=== PATIENT | female | born 1965 | race Caucasian/White ===

== ENCOUNTER 2022-08-18 09:01 | Emergency (ER) | payer OTHER, SELFPAY ==
[2022-08-18 09:12] VITALS: BP 173/94; PULSE 91; RESP 18; TEMP 36.1; O2SAT 95; BMI 31.3
--- NOTE | 2022-08-18 10:01 | ED_ITS ---
HPI - Skin/Abscess/Foreign Bdy General Date Seen: 08/18/22 Chief complaint: Skin/Abscess/Foreign Body Stated complaint: Tick on L shoulder with rash Time Seen by Provider: 08/18/22 09:16 Source: patient Mode of arrival: ambulatory Limitations: no limitations History of Present Illness HPI narrative: Patient is a 57-year-old female who noticed a deer tick in her left supraclavicular region today. She comes in for an assessment of this. She tells me she has been treated for Lyme disease before, a couple years ago, her daughter almost from this. She did not remove the taking the tick is still there, she thinks she got it from 2 days ago and she mowed the lawn, she has no allergies to any medications, has been on doxycycline before. She is due to go to [place] early this week. Denies any fevers chills any spreading rash, there is no history of aches or pains, or any other characteristic findings such as headaches, neck discomfort of Lyme disease. Related Data Previous Rx's Medication Instructions Recorded doxycycline monohydrate 100 mg 100 mg PO BID #20 caps 08/18/22 capsule Allergies Allergy/AdvReac Type Severity Reaction Status Date / Time No Known Drug Allergies Allergy Verified 08/18/22 09:12 Review of Systems Status of ROS: Reports: 10 or more systems reviewed and unremarkable except as noted in History and below [facility] Social History Smoking Status: Never smoker Do you use any of these nicotine containing products: None Second hand tobacco smoke exposure: No How often do you have a drink containing alcohol: monthly or less How many standard drinks containing alcohol do you have on a typical day: 1 or 2 How often do you have six or more drinks on one occasion: Never AUDIT-C Alcohol total score: 1 Non-prescribed substance use: denies use service: No Exam Narrative: Exam Narrative: On examination there is imbedded engorged left-sided supraclavicular tick that appears to be a deer tick, small area redness characteristic of a tick bite is around it, but no characteristic rash suggestive of either typical or atypical erythema migrans. Areas clean with alcohol, using standard tick removal technique, the head is grasped with the pickups, and removed, I appeared to remove the entire tick intact, maybe a little bit of head was left. But the body was not squeeze. Bacitracin was applied Const: Vital Signs, click to edit/add: Vital Signs - 24 hr 08/18/22 09:12 Temperature 96.9 F L Pulse Rate [Pulse Oximeter] 91 Respiratory Rate 18 Blood Pressure [Ri ght Forearm] 173/94 H Pulse Oximetry 95 Oxygen Delivery Me thod Room Air Documenting provider has reviewed patient's vital signs: yes Course Course Hospital Course: Given the take is been on for less than 72 hours she should be given prophylaxis with doxycycline, 200 mg x 1 is given, she is advocating for a prescription for doxycycline for 10 days in case she develops the rash while she was in [place], given the situation I am not against this, but I would wait on taking the doxycycline, as there is an 85-90% chance of the prophylaxis works very well for this. We went over the risks benefits and side effects of taking the doxycycline. And the obvious reason why she should take the other prescription for Lyme disease. She should also follow-up for getting her blood pressure checked as it was elevated here. This may be re of related to being in the emergency department. Vital Signs Vital signs: Initial Vital Signs Temperature 96.9 F L 08/18/22 09:12 Temperature Source Temporal Artery Scan 08/18/22 09:12 Pulse Rate 91 08/18/22 09:12 Pulse Rhythm Regular 08/18/22 09:12 Respiratory Rate 18 08/18/22 09:12 Blood Pressure 173/94 H 08/18/22 09:12 Blood Pressure Mean 120 H 08/18/22 09:12 Blood Pressure Position Supine 08/18/22 09:12 Pulse Oximetry 95 08/18/22 09:12 Oxygen Delivery Method Room Air 08/18/22 09:12 Vital Signs Temperature 96.9 F L 08/18/22 09:12 Pulse Rate 91 08/18/22 09:12 Respiratory Rate 18 08/18/22 09:12 Blood Pressure 173/94 H 08/18/22 09:12 Pulse Oximetry 95 08/18/22 09:12 Oxygen Delivery Method Room Air 08/18/22 09:12 Temperature 96.9 F L 08/18/22 09:12 Pulse Rate 91 08/18/22 09:12 Respiratory Rate 18 08/18/22 09:12 Blood Pressure 173/94 H 08/18/22 09:12 Pulse Oximetry 95 08/18/22 09:12 Oxygen Delivery Method Room Air 08/18/22 09:12 Discharge Plan Discharge Clinical Impression: Tick bite with subsequent removal of tick, Elevated blood pressure reading, History of chronic hypertension Patient Disposition: Home, Self-Care Condition: Improved Instructions: Lyme Disease (ED), Tick Bite (ED) Additional Instructions: Home rest use of Tylenol for the headache that will develop with use of doxycycline. I have given you prescription that she may fill intake with you to your up if you needed. For 100 mg of the doxy twice daily for 10 days. Any other symptoms you need to follow-up with the doctor. Please only take the medication if you developed the bull's-eye lesion, or other characteristic findings of Lyme disease. Bacitracin should be applied daily to the area of the tick bite, the mouth parts if they are still in there, which I thought I got most of the mouth parts out. They will follow-up themselves are be expelled by the skin. He should follow-up in get her blood pressure checked, the elevated blood pressure may be a reflection of being in the emergency department but I would be more comfortable with use being seen by primary care, and getting this checked. This should be done within the next few weeks. Activity Level: No Restrictions Prescriptions: New doxycycline monohydrate 100 mg capsule 100 mg PO BID Qty: 20 0RF Follow Up/Referrals: Erma Mock MD [Primary Care Provider] - Stand Alone Forms: [employer] Info Instructions
[2022-08-18] MEDS: DOXYCYCLINE HYCLATE 100 MG CAPSULE 200 MG PO (10:08)
== END 2022-08-18 10:17 | disposition home or self-care (01) ==
LOC: ED 10:06
PROVIDERS: Emergency Provider Family Medicine; PCP Family Medicine
DX: S10.86XA Insect bite of other specified part of neck, initial encounter (principal); W57.XXXA Bitten or stung by nonvenomous insect and other nonvenomous arthropods, initial encounter; Y93.H2 Activity, gardening and landscaping
CPT/HCPCS: 99283; 99284; A9270

== ENCOUNTER 2022-09-27 09:05 | Outpatient (CLI) | payer OTHER, SELFPAY | END 2022-09-27 09:06 | disposition home or self-care (01) | PROVIDERS: PCP Family Medicine; Visit Provider Family Medicine | DX: R53.83 Other fatigue (principal); E78.5 Hyperlipidemia, unspecified; E55.9 Vitamin D deficiency, unspecified; I10 Essential (primary) hypertension; E66.9 Obesity, unspecified | CPT/HCPCS: 80053; 80061; 82306; 82607; 84443 ==

== ENCOUNTER 2023-02-07 09:00 | Outpatient (CLI) | payer OTHER, SELFPAY ==
--- NOTE | 2023-02-07 09:43 | W.ANESCHARGE ---
Anesthesia Charges Start Date/Time Anesthesia Start Date: 02/07/23 Anesthesia Start Time: 09:25 Stop Date/Time Anesthesia Stop Date: 02/07/23 Anesthesia Stop Time: 09:50
--- NOTE | 2023-02-07 09:53 | W.ANESCHARGE ---
Anesthesia Charges Start Date/Time Anesthesia Start Date: 02/07/23 Anesthesia Start Time: 09:25 Stop Date/Time Anesthesia Stop Date: 02/07/23 Anesthesia Stop Time: 09:50
== END 2023-02-07 09:01 | disposition home or self-care (01) ==
LOC: OP CLINIC 09:01
PROVIDERS: PCP Family Medicine; Visit Provider Internal Medicine
DX: Z12.11 Encounter for screening for malignant neoplasm of colon (principal); K57.30 Diverticulosis of large intestine without perforation or abscess without bleeding; Z86.010 Personal history of colon polyps
CPT/HCPCS: 00811; 00812; 45378; J2704

== ENCOUNTER 2023-02-14 15:08 | Outpatient (CLI) | payer OTHER, SELFPAY ==
--- NOTE | 2023-02-14 15:00 | CRLHL7_ITS ---
For Patients: As a result of the Century Cures Act, medical imaging exams and procedure reports are released immediately into your electronic medical record. You may view this report before your referring provider. If you have questions, please contact your health care provider. BILATERAL SCREENING MAMMOGRAM WITH COMPUTER-AIDED DETECTION TECHNIQUE: CC and MLO views were obtained. These mammographic images have been obtained using full-field digital technique. These mammographic images were interpreted with the benefit of computer-aided detection. COMPARISON FILM: 07/31/21, 04/21/18, 09/19/10. FINDINGS: There are scattered areas of fibroglandular density. IMPRESSION: There is no radiographic evidence for malignancy. ASSESSMENT: BI-RADS Category 1: Negative RECOMMENDATION: Routine screening mammogram in 1 year. A lay language report of this examination will be provided to the patient. ALEX MORILLO M.D. Diagnostic Radiologist [email or web address] Transcribed: 02/17/2023, 5:[address]/Dictated by: Alex Morillo MD @ 02/17/2023 1:03:00 PM (Electronically Signed)
== END 2023-02-14 15:09 | disposition home or self-care (01) ==
LOC: MAMMO 15:09
PROVIDERS: PCP Family Medicine; Visit Provider Family Medicine
DX: Z12.31 Encounter for screening mammogram for malignant neoplasm of breast (principal)
CPT/HCPCS: 77067

== ENCOUNTER 2024-02-11 15:27 | Outpatient (CLI) | payer OTHER, SELFPAY ==
--- OUTSIDE RECORDS SUMMARY | 2024-02-11 15:32 | XMS_ITS | Clinical Summary ---
Author Organization [facility] Address [address] [place] [address] Care Team Providers Care Tire Tester Name Role Phone Unavailable Primary Care Provider Unavailabl e Source Comments Patient records contain information from all sites at [facility]. For routine questions regarding patient records, call [phone] during business hours, M-F 8:00 AM - 5:00 PM Central Time. Record requests for emergency care only can be directed to [phone] at any time.[facility] Allergies No known active allergies Medications losartan (COZAAR) 50 mg tablet Take 50 mg by mouth daily. Active multivitamin (MULTIPLE VITAMINS) tablet Take 1 tablet by mouth daily. 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 Pulse 96 08/26/2017 3:49 PM CDT Temperature - - Respiratory Rate - - Oxygen Saturation - - Inhaled Oxygen Concentration - - Weight 99.9 kg (220 lb 3.8 oz) 08/26/2017 3:49 PM CDT Height 168.5 cm (5' 6.34) 08/26/2017 3 :49 PM CDT Body Mass Index 35.19 08/26/2017 3:49 PM CDT Plan of Treatment Health Maintenance Due Date Last Done Comments CT Colonography 1965 Cologuard 1965 Colonoscopy 1965 Colorectal Cancer Screening 1965 Creatinine Level (Kidney Function Test) 1965 FIT 1965 Fasting Glucose for Diabetes Screening 1965 HIV Screening 1965 Hepatitis C Screening 1965 Lipid (Cholesterol) Screening 1965 Mammogram 1965 Potassium Level 1965 Sodium Level 1965 Hepatitis B Vaccines (1 of 3 - 19+ 3-dose series) 1984 Zoster Vaccines (1 of 2) 06/14/2015 Cervical/Vaginal Cancer Screening 03/24/2021 03/24/2018 Depression Screening (Annual PHQ-2) 04/07/2023 COVID-19 Vaccine (1 - 2023-2 5 season) 2023 Influenza Vaccine (#1) 2024 DTaP,Tdap,and Td Vaccines (3 - Td or Tdap) 05/25/2031 05/25/2021, 09/04/2010 IPV Vaccines Aged Out No longer eligi ble based on patient's age to complete this topic Pneumococcal vaccine (0-64 years) Aged Out No longer eligible b ased on patient's age to complete this topic Insurance [facility]
--- OUTSIDE RECORDS SUMMARY | 2024-02-11 15:32 | XMS_ITS | Clinical Summary ---
Author Organization [facility] Address [address] [place] [address] Care Team Providers Care Railway Track Plant Operator Name Role Phone Unavailable Primary Care Provider Unavailabl e Allergies No known active allergies Medications Multiple Vitamin (MULTI-VITAMIN PO) Active lisinopril (PRINIVIL/ZESTRI L) 10 MG tablet Take 10 mg by mouth daily Active Active Problems Problem Noted Date Diagnosed Date Seborrheic keratosis 03/14/2017 Inflamed seborrheic keratosis 03/14/2017 Rey angioma 03/14/2017 Multiple nevi 03/14/2017 History of basal cell carcinoma 03/14/2017 Skin exam, screening for cancer 04/16/2013 Family History Medical History Relation Comments Skin Cancer Father Skin Cancer Mother Relation Status Comments Father Mother Social History Tobacco Use Types Packs/Day Years Used Date Smoking Tobacco: Never Smokeless Tobacco: Never Alcohol Use Standard Drinks/Week Comments Not Asked 0 (1 standard drink = 0.6 oz pur e alcohol) Comments Unknown Sex and Gender Information Value Date Recorded Sex Assigned at Not on file 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
--- OUTSIDE RECORDS SUMMARY | 2024-02-11 15:32 | XMS_ITS | Referral Summary ---
Author Organization [facility] Address [address] [place] [address] Care Team Providers Care Doll Eye Setter Name Role Phone Unavailable Primary Care Provider Unavailabl e Source Comments Patient records contain information from all sites at [facility]. For routine questions regarding patient records, call [phone] during business hours, M-F 8:00 AM - 5:00 PM Central Time. 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
--- OUTSIDE RECORDS SUMMARY | 2024-02-11 15:32 | XMS_ITS ---
Author Organization [facility] Address [address] [place] [address] Care Team Providers Care Accreditation Manager Name Role Phone Unavailable Unavailable Unavailable Surgery Details Not on file Complications Check Surgery Details section. Procedure Estimated Blood Loss Check Surgery Details section. Procedure Findings Check Surgery Details section. Procedure Specimens Taken Check Surgery Details section.
--- OUTSIDE RECORDS SUMMARY | 2024-02-11 15:32 | XMS_ITS | Clinical Summary ---
Author Organization [facility] Address [place], [place] [address] Care Team Providers Care Fire Boat Engineer Name Role Phone Pcp, No Primary Care Provider Unavailabl e Allergies No known active allergies Medications Medication Sig Dispensed Refills Start Date End Date Status albuterol HFA (PROAIR HFA) 90 mcg/actuation inhalerIndications:Bro nchitis with bronchospasm Inhale 2 Puffs by mouth every 4 hours if needed. 1 Inhaler 1 04/10/2017 Active losartan (COZAAR) 50 mg tabletIndications:HTN (hypertension) Take 1 tablet by mouth once daily. 30 tablet 5 05/07/2017 Active Active Problems Problem Noted Date Diagnosed Date HTN (hypertension) 05/07/2017 Immunizations Name Administration Dates Next Due Hepatitis A (Adult) 06/23/2014 Tdap 09/04/2010 Social History Tobacco Use Types Packs/Day Years Used Date Smoking Tobacco: Never Smokeless Tobacco: Never Tobacco Cessation:Counseling Given: Yes Alcohol Use Standard Drinks/Week Comments Yes 0 (1 standard drink = 0.6 oz pur e alcohol) mild PHQ-2 Answer Date Recorded PHQ-2 Score 0 06/07/2018 Social Connections Answer Date Recorded Frequency of Communication with Friends and Fami ly Not on file 04/07/2021 Financial Resource Strain Answer Date R ecorded Difficulty of Paying Living Expenses Not on file 04/07/2021 Difficulty of Paying Living Expenses Not on file 04/07/2021 Sex and Gender Information Value Date Recorded Sex Assigned at Not on file Gender Identity Not on file Sexual Orientation Not on file Obstetrics History Last Filed Vital Signs Vital Sign Reading Time Taken Comments Blood Pressure 140/96 02/08/2021 1:28 PM CDT Pulse 99 02/08/2021 1:28 PM CDT Temperature 36.7 ??C (98.1 ??F) 02/08/2021 1:28 PM CD T Respiratory Rate - - Oxygen Saturation 95% 02/08/2021 1:28 PM CDT Inhaled Oxygen Concentration - - Weight 96.1 kg (211 lb 12.8 oz) 02/08/2021 1:34 PM CDT Height 169.5 cm (5' 6.73) 02/08/2021 1:34 PM CD T Body Mass Index 33.44 02/08/2021 1:34 PM CDT Plan of Treatment Health Maintenance Due Date Last Done Comments HIV for age 15-65 1980 Hepatitis C screening for age 18-79 06/14/1983 Colonoscopy through age 75 2010 Lipids for age 45-75 2010 Zoster (shingles) series for age 50+ (1 of 2) 06/14/2015 Depression screening for age 12+ 12/10/2018 12/10/2017 Mammogram for age 45-75 04/21/2019 04/21/2018 Tetanus booster 09/04/2020 09/04/2010 Pap test for age 21-65 03/24/2021 8, 03/24/2018, 09/04/2010 BMI (ht and wt on same day) for age 18+ 02/08/2022 02/08/2021, 12/10/2017, 04/09/2017, Additional history exists COVID-19 vaccine series (2023- season) 2023 Influenza for age 50-64 12/07/2023 Tdap Completed 09/04/2010 Pneumococcal series for age 6-64 Aged Out No longer eligible based on patient's age to complete this topic Procedures Procedure Name Priority Date/Time Associated Diagnosis Comments SCAN-MAMMOGRAPHY REPORT 04/21/2018 12:00 AM LEAN SPECIALIST DIGITAL COLOR PRESS OPERATOR THIN PREP PAP SCREEN IMAGED Routine 03/24/2018 8:00 AM LEAN SPECIALIST from Last 3 Months or Most Recently Relevant to Health Maintenance Results * SCAN-MAMMOGRAPHY REPORT (04/21/2018 12:00 AM LEAN SPECIALIST) Anatomical Region Laterality Modality Other Scanner OTHER * DIGITAL COLOR PRESS OPERATOR THIN PREP PAP SCREEN IMAGED (03/24/2018 8:00 AM LEAN SPECIALIST) Case Report Gynecologic Cytology Report ? Case: [id number] ? Authorizing Provider: ??Erma Mock MD ??Collected: ? 03/24/2018 0800 ? First Screen: ?Shaq, Gary ?Received: ?03/25/2018 1116 ? Rescreen: ?Norma Senior ? Specimen: ?DIGITAL COLOR PRESS OPERATOR ThinPrep Vial Screening, Cervical/Vaginal ? 04/10/2018 2:35 PM [facility] INTERPRETATION/ RESULT NEGATIVE FOR INTRAEPITHELIAL LESION OR MALIGNANCY (NIL) (none) 04/10/2018 2:35 PM [facility] IMEN ADEQUACY Satisfactory for evaluation Endocervical component present Scant cellularity 04/10/2018 2:35 PM [facility] HPV REQUEST HPV and PAP 04/10/2018 2:35 PM [facility] Automated Review Successful 04/10/2018 2:35 PM [facility] Comment:Specimen processed s uccessfully by automated layboy operator device, ThinPrep Imaging System, [employer] ANCILLARY TESTING DIGITAL COLOR PRESS OPERATOR HPV Ordered, Please see separate report 04/10/2018 2:35 PM LEAN SPECIALIST [facility]- ENTRAL LABORATORY Note The pap test is a screening technique, not a diagnostic procedure. ??It is used primarily to screen for squamous cancers and precursor lesions. ??Published studies have shown that it is subject to both false negative and false positive results. ??The pap test should not be used as the sole means to diagnose or exclude pre-malignant and malignant lesions. Cytology is screened and interpreted at [facility] - [address], [place] [address] [facility] - [address]; [place] [address] and [facility] - [address]; [place] [address] and [facility] [address]; [place] [address] 04/10/2018 2:35 PM LEAN SPECIALIST [facility]- ENTRAL LABORATORY Other (Cervical/Vagina l) 03/24/2018 8:00 AM LEAN SPECIALIST 03/25/2018 11:16 AM LEAN SPECIALIST Erma Mock MD PATHOLOGY/[facility] [address] [place] [address], [place] from Last 3 Months or Most Recently Relevant to Health Maintenance Care Teams Fire Boat Engineer Relationship Specialty Start Date End Date Pcp, No . PCP - General 10/06/23
--- OUTSIDE RECORDS SUMMARY | 2024-02-11 15:32 | XMS_ITS | Referral Summary ---
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
== END 2024-02-11 15:28 | disposition home or self-care (01) ==
PROVIDERS: PCP Family Medicine; Visit Provider Family Medicine
DX: E53.8 Deficiency of other specified B group vitamins (principal); R53.83 Other fatigue; E78.5 Hyperlipidemia, unspecified; E55.9 Vitamin D deficiency, unspecified; I10 Essential (primary) hypertension; E66.9 Obesity, unspecified
CPT/HCPCS: 80053; 80061; 82306; 82607

== ENCOUNTER 2024-06-04 10:26 | Outpatient (CLI) | payer OTHER, SELFPAY | END 2024-06-04 10:27 | disposition home or self-care (01) | PROVIDERS: PCP Family Medicine; Visit Provider Family Medicine | DX: Z12.31 Encounter for screening mammogram for malignant neoplasm of breast (principal) | CPT/HCPCS: 77063; 77067 ==

== ENCOUNTER 2025-01-27 14:19 | Emergency (ER) | payer OTHER, SELFPAY ==
--- OUTSIDE RECORDS SUMMARY | 2025-01-27 14:21 | XMS_ITS | Clinical Summary ---
Author Organization [facility] Address [address] [place] [address] Care Team Providers Care Identity Management Consultant Name Role Phone Unavailable Primary Care Provider Unavailabl e Source Comments Patient records contain information from all sites at [facility]. For routine questions regarding patient records, call [phone] during business hours, M-F 8:00 AM - 5:00 PM Central Time. Record requests for emergency care only can be directed to [phone] at any time.[facility] Allergies No known active allergies Medications losartan (COZAAR) 50 mg tablet Take 50 mg by mouth daily. Active multivitamin (MULTIPLE VITAMINS) tablet Take 1 tablet by mouth daily. 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 Gender Identity Female 08/13/2017 9:01 AM CDT Sexual Orientation Straight 08/13/2017 9: 01 AM CDT Last Filed Vital Signs Vital Sign Reading Time Taken Comments Blood Pressure 158/96 07/15/2024 1:09 PM CDT Pulse 84 07/15/2024 1:09 PM CDT Temperature - - Respiratory Rate - - Oxygen Saturation - - Inhaled Oxygen Concentration - - Weight 99.9 kg (220 lb 3.8 oz) 08/26/2017 3:49 P M CDT Height 168.5 cm (5' 6.34) 08/26/2017 3:49 PM CD T Body Mass Index 35.19 08/26/2017 3:49 PM [...] of 3 - 19+ 3-dose series) 1984 Pneumococcal vaccine (50+ years) (1 of 1 - PCV) 06/14/2015 Zoster Vaccines (1 of 2) 06/14/2015 Cervical/Vaginal Cancer Screening 03/24/2021 03/24/2018 Depression Screening (Annual PHQ-2) 04/07/2024 COVID-19 Vaccine (1 - 2024-2 6 season) 2024 Influenza Vaccine (#1) 2024 DTaP,Tdap,and Td Vaccines (3 - Td or Tdap) 05/25/2031 05/25/2021, 09/04/2010 IPV Vaccines Aged Out No longer eligi ble based on patient's age to complete this topic Insurance [facility]
--- OUTSIDE RECORDS SUMMARY | 2025-01-27 14:21 | XMS_ITS | Clinical Summary ---
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
--- OUTSIDE RECORDS SUMMARY | 2025-01-27 14:21 | XMS_ITS | Clinical Summary ---
Author Organization [facility] Address [address] [place] [id number] Care Team Providers Care Cardiac Cath Lab Manager Name Role Phone Pcp, No Primary Care Provider Unavailabl e Allergies No known active allergies Medications albuterol HFA (PROAIR HFA) 90 mcg/actuation inhalerIndication s:Bronchitis with bronchospasm Inhale 2 Puffs by mouth every 4 hours if needed. 1 Inhaler 1 04/10/2017 Active losartan (COZAAR) 50 mg tabletIndications :HTN (hypertension) Take 1 tablet by mouth once daily. 30 tablet 5 05/07/2017 Active Active Problems Problem Noted Date Diagnosed Date HTN (hypertension) 05/07/2017 Immunizations Immunization Administration Dates Next Due Hepatitis A (Adult) [...] Paying Living Expenses Not on file 04/07/2021 Comments No Sex and Gender Information Value Date Recorded Sex Assigned at Not on file Legal Sex Female 6:10 AM SAMPLE BOOK MAKER Gender Identity Not on file Sexual Orientation Not on file Obstetrics History Last Filed Vital Signs Vital Sign Reading Time Taken Comments Blood Pressure 140/96 02/08/2021 1:28 PM CDT Pulse 99 02/08/2021 1:28 PM CDT Temperature 36.7 C (98.1 F) 02/08/2021 1:28 PM CDT Respiratory Rate - - Oxygen Saturation 95% [...] age 15-65 1980 Hepatitis C screening for ag e 18-79 06/14/1983 Hepatitis B series for 19+ ( 1 of 3 - 19+ 3-dose series) 1984 Colonoscopy through age 75 2010 Lipids for age 45-75 2010 Pneumococcal series for age 50+ (1 of 1 - PCV) 06/14/2015 Zoster (shingles) series for age 50+ (1 of 2) 06/14/2015 Depression screening for age 12+ 12/10/2018 12/11/19 18 Mammogram for age 45-75 04/21/2019 04/21/2018 Tetanus booster 09/04/2020 09/04/2010 Pap test for age 21-65 03/24/2021 8, 03/24/2018, 09/04/2010 BMI (ht and wt on same day) for age 18+ 02/08/2022 02/08/2021, 12/10/2017, 04/09/2017, Additional history exists COVID-19 vaccine series ( season) 2024 Influenza Vaccine (#1) 2024 RSV vaccine for adults or (1 - 1-dose 75+ series) 2040 Procedures Procedure Name Priority Date/Time Associated Diagnosis Comments SCAN-MAMMOGRAPHY REPORT 04/21/2018 12:00 AM SAMPLE BOOK MAKER MACHINE DESIGN ENGINEER THIN PREP PAP SCREEN IMAGED Routine 03/24/2018 8:00 AM SAMPLE BOOK MAKER from Last 3 Months or Most Recently Relevant to Health Maintenance Results * SCAN-MAMMOGRAPHY REPORT (04/21/2018 12:00 AM SAMPLE BOOK MAKER) Anatomical Region Laterality Modality Other us Scanner OTHER Final Result * MACHINE DESIGN ENGINEER THIN PREP PAP SCREEN IMAGED (03/24/2018 8:00 AM SAMPLE BOOK MAKER) Case Report Gynecologic Cytology Report Case: [id number] Authorizing Provider: Erma Mock MD Collected: 03/24/2018 0800 First Screen: Shaq Gary Received: 03/25/2018 1116 Rescreen: Norma Senior Specimen: MACHINE DESIGN ENGINEER ThinPrep Vial Screening, Cervical/Vaginal 04/10/2018 2:35 PM SAMPLE BOOK MAKER [facility] INTERPRETATION/ RESULT NEGATIVE FOR INTRAEPITHELIAL LESION OR MALIGNANCY (NIL) (none) 04/10/2018 2:35 PM SAMPLE BOOK MAKER [facility]- ENTRAL LABORATORY at 1435 SAMPLE BOOK MAKER SPECIMEN ADEQUACY Satisfactory for evaluation Endocervical component present Scant cellularity 04/10/2018 2:35 PM SAMPLE BOOK MAKER [facility] LABORATORY ENTRAL LABORATORY HPV REQUEST HPV and PAP 04/10/2018 2:35 PM SAMPLE BOOK MAKER [facility] LABORATORY-C ENTRAL LABORATORY Automated Review Successful 04/10/2018 2:35 PM SAMPLE BOOK MAKER [facility] LABORAT[facility]- ENTRAL LABORATORY Comment:Specimen processed s uccessfully by automated finished carpet inspector device, ThinPrep Imaging System, [employer] ANCILLARY TESTING MACHINE DESIGN ENGINEER HPV Ordered, Please see separate report 04/10/2018 2:35 PM SAMPLE BOOK MAKER [facility] ENTRAL LABORATORY Note The pap test is a screening technique, not a diagnostic procedure. It is used primarily to screen for squamous cancers and precursor lesions. Published studies have shown that it is subject to both false negative and false positive results. The pap test should not be used as the sole means to diagnose or exclude pre-malignant and malignant lesions. Cytology is screened and interpreted at [facility], Central Laboratory - [address], [place] [address] and [facility] - [address]; [place] [address] and [facility] - [address]; [place] [address] and [facility] [address]; [place] [address] 04/10/2018 2:35 PM SAMPLE BOOK MAKER [facility] LABORATORY-C ENTRAL LABORATORY Other (Cervical/Vagina l) 03/24/2018 8:00 AM SAMPLE BOOK MAKER 03/25/2018 11:16 AM SAMPLE BOOK MAKER us Erma Mock MD PATHOLOGY/CYTOLOGY Final Result [facility] LABORATORY-CENTRAL LABORATORY [address] [place] [address], [place] from Last 3 Months or Most Recently Relevant to Health Maintenance Care Teams Cardiac Cath Lab Manager Relationship Specialty Start Date End Date Pcp, No . PCP - General 10/06/23
[2025-01-27 14:29] VITALS: BP 174/123; PULSE 93; RESP 18; TEMP 36.1; O2SAT 98; BMI 33.2
--- NOTE | 2025-01-27 15:02 | ED_ITS ---
HPI - General Adult General Chief complaint: Fall/Minor Trauma Stated complaint: fell, hit head Time Seen by Provider: 01/27/25 14:51 History of Present Illness HPI narrative: Pt states she was in [facility] two days ago, was at pool and slipped and fell back on tailbone and then hit head on concrete, denies LOC. Pt. was seen by medics and wanted to stay at hotel as she was flying out next day. Flew home and states it was a smooth flight but vomited. Has been having discomfort in lower n carly, between shoulder blades and also where she hit the back of head ( right side top/ back of head). Pt. c/o headache 05/17 dull ache denies continued nausea or vomiting, denies vision changes. 59-year-old woman presenting to emergency department with concern a head injury. 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 At a pool she slipped and fell backward striking her tailbone buttock area and then her head on concrete. Has not been having trouble ambulating. Feels that this buttock injury is not a major issue. There was not a loss of consciousness. Evaluated at the time by what sounds like EMS and recommended to be observed overnight. She declined transport to the hospital not wanting to miss her flight. She does not take anticoagulants. On flight she did vomit once. Flying is not usually a problem for her like this. Has been having increasing soreness in the lower neck area/upper back. Also soreness in her head site of impact. Dull headache. No discoordination. Visual changes. In further discussion of concerns she is less concerned about possible bleed but more about concussion. Related Data Previous Rx's ?Medication ?Instructions ?Recorded cyanocobalamin (vitamin B-12) 1,000 mcg PO QDAY #90 ta bs 09/27/22 1,000 mcg tablet (Vitamin B-12) amlodipine 10 mg tablet 10 mg PO QDAY #90 tabs 10/06 losartan 100 mg tablet 100 mg PO QDAY #90 tabs 06/01 scopolamine base 1 mg over 3 days 1 patch transdermal Q72H PRN 10/06/24 transdermal patch motion sickness #10 ea Allergies Allergy/AdvReac Type Severity Reaction Status Date / Time No Known Drug Allergies Allergy Verified 10/06/24 14:02 Review of Systems Status of ROS: Reports: 6 or more systems reviewed and unremarkable except as noted in History and below PFSH PFS Medical History Sleep apnea in adult ?G47.30 - Sleep apnea, unspecified (ICD-10) Dyslipidemia ?E78.5 - Hyperlipidemia, unspecified (ICD-10) Basal cell carcinoma (BCC) (2000) ?C44.91 - Basal cell carcinoma of skin, unspecified (ICD-10) Surgical History H/O basal cell carcinoma excision (2001) ?Z98.890 - Other specified postprocedural states (ICD-10) ?Z85.828 - Personal history of other malignant neoplasm of skin (ICD-10) Adenomatous polyp of colon ?D12.6 - Benign neoplasm of colon, unspecified (ICD-10) History of tonsillectomy ?Z90.89 - Acquired absence of other organs (ICD-10) Family History Father Atrial fibrillation Lung cancer FH: kidney cancer Melanoma Aunt Breast cancer Sister Depression Family/Other Depression Mother Melanoma Aunt Breast cancer Social History 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: , 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, 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, 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 Non-smoker Social drinker 1/week Activities include walking 2/week What is your current living situation?: I presently have a place to live In the past 12 months, utilities in danger of being shut off: no In past 12 months, lack of transportation kept you from medical appts, meetings, work, or getting things needed for daily living: no In the past 12 mos, have been you worried that your food would run out before you had money to buy more?: never true In the past 12 mos, the food you bought just didn't last and you didn't have money to buy more?: never true Smoking Status: Never smoker Do you use any of these nicotine containing products: None Second hand tobacco smoke exposure: No How often do you have a drink containing alcohol: monthly or less How many standard drinks containing alcohol do you have on a typical day: 1 or 2 How often do you have six or more drinks on one occasion: Never AUDIT-C Alcohol total score: 1 Non-prescribed substance use: denies use How often does anyone, including family, friends and others, physically hurt you : never How often does anyone, including family, friends and others, insult or talk down to you: rarely How often does anyone, including family, friends and others, threaten you with harm: never How often does anyone, including family, friends and others, scream or curse at you: never service: No Health Related Social Needs: Other personal risk factors, not elsewhere classified (Z91.89) Exam Narrative: Exam Narrative: Pleasant. NAD but seems little uncomfortable. Tired. Cranial nerves 2-12 are intact. GCS 15. Head appears atraumatic at this time. No irregularities, step-offs. Neck is with think full range of motion. No midline tenderness. She does have some low paracervical and trapezial and rhomboid area tenderness. Moving all extremities without difficulty. No injury to the arms or legs apparent. No midline back tenderness to palpation. Romberg's is normal. She has no nystagmus. Extraocular movements are full. Normal [id number]. Cognition appears normal other than as noted seems little tired. Normal tandem gait. Const: Vital Signs, click to edit/add: Vital Signs - 24 hr 01/27/25 14:29 Temperature 97.0 F L Pulse Rate [Pulse Oximeter] 93 Respiratory Rate 18 Blood Pressure [Ri ght Upper Arm] 174/123 H Pulse Oximetry 98 Oxygen Delivery Me thod Room Air Documenting provider has reviewed patient's vital signs: yes Course Vital Signs Vital signs: Initial Vital Signs Temperature 97.0 F L 01/27/25 14:29 Temperature Source Temporal Artery Scan 01/27/25 14:29 Pulse Rate 93 01/27/25 14:29 Respiratory Rate 18 01/27/25 14:29 Blood Pressure 174/123 H 01/27/25 14:29 Blood Pressure Mean 140 H 01/27/25 14:29 Blood Pressure Position Sitting 01/27/25 14:29 Pulse Oximetry 98 01/27/25 14:29 Oxygen Delivery Method Room Air 01/27/25 14:29 Vital Signs Temperature 97.0 F L 01/27/25 14:29 Pulse Rate 93 01/27/25 14:29 Respiratory Rate 18 01/27/25 14:29 Blood Pressure 174/123 H 01/27/25 14:29 Pulse Oximetry 98 01/27/25 14:29 Oxygen Delivery Method Room Air 01/27/25 14:29 Temperature 98.0 F 01/27/25 15:39 Pulse Rate 85 01/27/25 15:39 Respiratory Rate 18 01/27/25 15:39 Blood Pressure 154/78 H 01/27/25 15:39 Pulse Oximetry 98 01/27/25 15:30 Oxygen Delivery Method Room Air 01/27/25 15:30 Medical Decision Making MDM Narrative Medical decision making narrative: Appears to have sustained a cervical strain, upper back strain at a minimum. Buttock area contusion/injury was not examined. I also think has mild concussion. We did discuss imaging her head. Did offer this. I suspect that she does not have a head bleed but would not know without imaging. Isa opted to defer imaging pending any further worsening symptoms. I do think has sustained a concussion, albeit mild at this point. Was dispensed a soft collar to try. 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 See patient discharge plan for further discussion Wear the soft collar as needed for comfort over the next week or so. Would still consider applying ice packs to your neck and shoulders. Can begin alternating them with warm packs as well. A few times daily do forward neck pull-downs as demonstrated. See handout also on some stretches/exercises for upper back pain that I think will be helpful. Take this with you to your chiropractic follow-up. Consider also receiving a massage in a couple of days. I suspect you do have a mild concussion. Important to stay well hydrated and get quality sleep. Further signs or symptoms of a concussion might be nausea or headache upon exertion which can also be an indication to back off that level or type of activity and reassess in a week.? Concussion can also be represented by smoldering nausea or smoldering headache, difficulty with concentration, mood lability, general somnolence, sense of persistent fog or dizzi ness/lightheadedness.? If these symptoms are becoming apparent and continuing beyond 7-10 days, be re-evaluated for further treatment recommendations. Medical Records Medical records reviewed: Yes I reviewed the patient's medical records Discharge Plan Discharge Clinical Impression: Closed head injury, Neck strain, Concussion Patient Disposition: Home, Self-Care Condition: Stable Additional Instructions: Wear the soft collar as needed for comfort over the next week or so. Would still consider applying ice packs to your neck and shoulders. Can begin alternating them with warm packs as well. A few times daily do forward neck pull-downs as demonstrated. See handout also on some stretches/exercises for upper back pain that I think will be helpful. Take this with you to your chiropractic follow-up. Consider also receiving a massage in a couple of days. I suspect you do have a mild concussion. Important to stay well hydrated and get quality sleep. Further signs or symptoms of a concussion might be nausea or headache upon exertion which can also be an indication to back off that level or type of activity and reassess in a week.? Concussion can also be represented by smoldering nausea or smoldering headache, difficulty with concentration, mood lability, general somnolence, sense of persistent fog or dizziness/lightheadedness.? If these symptoms are becoming apparent and continuing beyond 7-10 days, be re-evaluated for further treatment recommendations. Prescriptions: No Action losartan 100 mg tablet 100 mg PO QDAY Qty: 90 1RF amlodipine 10 mg tablet 10 mg PO QDAY Qty: 90 1RF scopolamine base 1 mg over 3 days patch 3 day 1 patch transdermal Q72H PRN (Reason: motion sickness) Qty: 10 1RF cyanocobalamin (vitamin B-12) [Vitamin B-12] 1,000 mcg tablet 1,000 mcg PO QDAY Qty: 90 4RF Rx Instructions: Take 1 tablet daily, if insurance does not cover by this same tablet [id number] Follow Up/Referrals: Erma Mock MD [Primary Care Provider, Family Practice] Stand Alone Forms: [employer] Info Instructions
[2025-01-27 15:30] VITALS: BP 154/78; PULSE 85; RESP 18; TEMP 36.7; O2SAT 98
[2025-01-27 15:39] VITALS: BP 154/78; PULSE 85; RESP 18; TEMP 36.7
== END 2025-01-27 15:40 | disposition home or self-care (01) ==
PROVIDERS: Emergency Provider Family Medicine; PCP Family Medicine
DX: S16.1XXA Strain of muscle, fascia and tendon at neck level, initial encounter (principal); S06.0X0A Concussion without loss of consciousness, initial encounter; W01.0XXA Fall on same level from slipping, tripping and stumbling without subsequent striking against object, initial encounter; Y93.11 Activity, swimming
CPT/HCPCS: 99283; 99284